=== PATIENT | female | born 1955 | race Caucasian/White ===

== ENCOUNTER 2020-03-07 18:47 | Outpatient (CLI) | payer OTHER, SELFPAY | END 2020-03-07 18:48 | disposition home or self-care (01) | LOC: LAB 18:51 | PROVIDERS: Visit Provider Nurse Practitioner Family | DX: R30.0 Dysuria (principal) | CPT/HCPCS: 87077; 87086; 87186 ==

== ENCOUNTER 2021-04-25 12:52 | Outpatient (CLI) | payer OTHER, SELFPAY ==
--- NOTE | 2021-04-25 13:08 | MM_ITS ---
WS: [email or web address] BILATERAL SCREENING DIGITAL MAMMOGRAM WITH CAD HISTORY: SCREENING COMPARISON: 01/11/2020 Bilateral CC and MLO views submitted. Computer aided detection analyzed. Breast composition: There are scattered areas of fibroglandular density. No suspicious masses, microc alcifications or architectural distortion. Asymmetric fibroglandular tissue, greatest within the RIGH T breast. Bilateral nodules and asymmetries are stable. No suspicious mass or distortion. MM/[id number] IMPRESSION: BI-RADS: 2-Benign FOLLOW UP: 1 Year Follow-up
== END 2021-04-25 12:53 | disposition home or self-care (01) ==
LOC: RADSHAW 13:05
PROVIDERS: Visit Provider Nurse Practitioner Family
DX: Z12.31 Encounter for screening mammogram for malignant neoplasm of breast (principal)
CPT/HCPCS: 77067

== ENCOUNTER 2022-04-27 09:33 | Outpatient (CLI) | payer OTHER, SELFPAY ==
--- NOTE | 2022-04-27 09:40 | MM_ITS ---
WS: [id number] VIEWS: MLO and CC views both breasts. 3D digital tomosynthesis is also included in this exam. Comparison made with prior exam of 01/23/2020 04/25/2021.. Findings: There was no sign of mass, architectural distortion or suspicious calcification in either breast. Sta ble appearing nodular densities in both breastsscattered fibroglandular densities MM/[id number] Impression: BI-RADS: 2-Benign FOLLOW-UP: 1 Year Follow-up This mammogram was also analyzed by the Computer Aided Detection System R[employer].
== END 2022-04-27 09:34 | disposition home or self-care (01) ==
LOC: RAD 09:33
PROVIDERS: PCP Family Medicine; Visit Provider Family Medicine
DX: Z12.31 Encounter for screening mammogram for malignant neoplasm of breast (principal)
CPT/HCPCS: 77063; 77067

== ENCOUNTER 2024-07-17 08:46 | Outpatient (CLI) | payer OTHER, SELFPAY ==
--- NOTE | 2024-07-17 08:53 | MM_ITS ---
WS: [email or web address] BILATERAL SCREENING DIGITAL TOMOSYNTHESIS MAMMOGRAM WITH CAD HISTORY: SCREENING COMPARISON: 07/09/2023, 05/13/2023 and 04/27/2022 Bilateral CC and MLO views with tomosynthesis and synthetic mammography submitted. Computer aided detection analyzed. Breast composition: The breasts are heterogeneously dense, which may obscure small masses. No suspicious masses, microcalcifications or architectural distortion. Stable asymmetric soft tissue in the anterior RIGHT breast. Small lymph node upper outer quadrant RIGHT breast. No suspicious masses or grouping of calcifications. MM/MM [facility] tomosynthesis [id number] IMPRESSION: BI-RADS: 2 - Benign FOLLOW UP: 1 Year Follow-up
== END 2024-07-17 08:47 | disposition home or self-care (01) ==
PROVIDERS: PCP Nurse Practitioner Family; Visit Provider Nurse Practitioner Family
DX: Z12.31 Encounter for screening mammogram for malignant neoplasm of breast (principal); R92.333 Mammographic heterogeneous density, bilateral breasts; N64.89 Other specified disorders of breast; R59.0 Localized enlarged lymph nodes
CPT/HCPCS: 77063; 77067